=== PATIENT | female | born 1935 | race Caucasian/White ===

== ENCOUNTER → 2017-07-01 | Outpatient (CLI) | payer MEDICARE, OTHER ==
[~2017-07-01] MED LIST: 5-HY100C PO; ALAVERT; ALLO100T70 PO; AML5; AMLO-104 PO; AMLO-98 PO; AMLO-99 PO; AMO500 PO; ASCO-191 PO; ASP325 PO; ASPI-1471 PO; CALC-797 PO; CEFU250T11 PO; CHOL200022 PO; CLO75 PO; CYA100 PO; ESOM20CA31 PO; FISH OIL 1,2001 CAP PO; FISH1CAP15 PO; FISH1CAP23 PO; GLUC1TAB35 PO; GRAP25CA3 PO; HYDR-2946 PO; HYDR12.558 PO; INDO50CA92 PO; IPRA4AER IH; LACT1CAP50 PO; LACT1CAP6 PO; LECI400C PO; LISI-374 PO; LISINOPRIL; LOR5/325 PO; MELA1TAB23 PO; MELA1TAB27 PO; METR-1 PO; MOME17SP2; MU-V1TAB9 PO; MULT-977 PO; MULT1TAB64 PO; NIA100 PO; OMEP40CA79 PO; ONDA4TAB PO; ONDA8TAB98 PO; PANT40TA65 PO; PARO-46 PO; PYRI50 PO; S-AD400T7 PO; SUPER ENZYMES PO; TRYP500C2 PO; TUMERIC PO; TURM500C7 PO; UBID400C6 PO; VITA-197 PO; [UNRECOGNIZED DRUG - CODE] PO
--- NOTE | 2017-07-01 16:56 | RADIOLOGY IMAGING REPORT ---
FACILITY: [facility] [place] PATIENT NAME: Alexandra Paul : 1935 MR: [id number] V: [id number] EXAM DATE: ORDERING PHYSICIAN: KARLEY HUYNH TECHNOLOGIST: [facility] Patient: Alexandra Paul : 1935 Visit/Account:[id number] Date of Sevice: 07/01/2017 CAROTID HISTORY: prior history of left endarterectomy COMPARISON: 10/11/2007 FINDINGS: Grayscale, duplex and color Doppler interrogation of the extracranial carotid and vertebral arteries was performed bilateral. On the right, peak systolic velocities within the common and internal carotid arteries are 74 and 82 cm/sec respectively. Mild plaque formation is noted along the medial proximal internal carotid arter y wall. No hemodynamically significant stenosis is identified. Doppler waveforms are within normal limits.. Antegrade flow within the common, internal and external carotid arteries as well as vertebr al artery. ICA/CCA ratio 1.2. On the left, peak systolic velocities within the common and internal carotid arteries are 79 and 97 c m/sec respectively. No hemodynamically significant stenoses are identified. No significant plaque f ormation is identified. Endarterectomy appears patent. Doppler waveforms are within normal limits.. Antegrade flow within the common, internal and external carotid arteries as well as vertebral arter y. ICA/CCA ratio 1.3. IMPRESSION: Negative carotid ultrasound, no stenoses are identified. Velocity criteria are extrapolated from diameter data as defined by the Society of Radiologists [place] [facility] Consensus Conference Radiology 2003; 229;340-346 Report Dictated By: Harsh Reilly at 07/01/2017 4:49 PM Report E-Signed By: Harsh Reilly at 07/01/2017 4:52 PM WSN:[id number]
== END ==
LOC: US 00:15
PROVIDERS: ATTEND Internal Medicine
DX: Z98.890 Other specified postprocedural states (principal)
CPT/HCPCS: 93880

== ENCOUNTER → 2017-09-01 | Outpatient (CLI) | payer MEDICARE, OTHER | LOC: LAB 09:16 | PROVIDERS: ATTEND Internal Medicine | DX: E78.2 Mixed hyperlipidemia (principal); I10 Essential (primary) hypertension; M10.9 Gout, unspecified | CPT/HCPCS: 36415; 82040; 82247; 82310; 82374; 82435; 82465; 82565; 82947; 83718; 84075; 84132; 84155; 84295; 84450; 84460; 84478; 84520; 84550 ==

== ENCOUNTER → 2017-11-01 | Outpatient (CLI) | payer MEDICARE, OTHER ==
[~2017-11-01] MED LIST changes: +MELA10CA PO
--- NOTE | 2017-11-01 09:46 | RADIOLOGY IMAGING REPORT ---
FACILITY: [facility] [place] PATIENT NAME: Alexandra Paul : 1935 MR: [id number] V: [id number] EXAM DATE: ORDERING PHYSICIAN: KARLEY HUYNH TECHNOLOGIST: Location: [facility] Patient: Alexandra Paul : 1935 Visit/Account:[id number] Date of Sevice: 11/01/2017 LIVER HISTORY: Elevated LFTs COMPARISON: CT abdomen pelvis from right 2016 FINDINGS: Gallbladder: Unremarkable; no stones or sludge. Liver: There is increased echogenicity throughout the liver which can be seen with fatty infiltration other infiltrative process. The liver is normal in size. Common duct: Normal, 3.3 mm diameter. Pancreas: Partially obscured by bowel, visualized aspects unremarkable. Right kidney: There is a slight lobular contour to the right kidney. No evidence of hydronephrosis. Right kidney measures 8.1 cm in length Upper abdominal aorta and IVC: Patent. Ascites: None visualized. IMPRESSION: Increased echogenicity throughout the liver which can be seen with fatty infiltration or other infilt rative process Report Dictated By: Radha De Paz MD at 11/01/2017 9:40 AM Report E-Signed By: Radha De Paz MD at 11/01/2017 9:42 AM WSN:[email or web address]
== END ==
LOC: US 01:13
PROVIDERS: ATTEND Internal Medicine
DX: K76.0 Fatty (change of) liver, not elsewhere classified (principal)
CPT/HCPCS: 76705

== ENCOUNTER → 2017-12-07 | Outpatient (CLI) | payer MEDICARE, OTHER ==
[~2017-12-07] VITALS: Ht 162.6 cm; Wt 75.3 kg
[~2017-12-07] MED LIST changes: +INDO-23 PO; -INDO50CA92 PO
--- NOTE | 2017-12-08 12:53 | Medical Nutrition Therapy ---
Nutrition Anthropometrics Height (Inches): 64 Weight (Pounds): 166 Obed Nutrition Score: Obed Nutrition Risk Score: Dietary Referral Nutrition Risk Factors: Nutrition Risk Comment: Nutrition/Food History Breakfast: muffin, juice or welsh toast, syrup, erazo, juice Lunch: mach & cheese or sandwihc ,fruit, pudding, estephania milk Dinner: sandwich or cheese and cracker Snacks: van wafer or crackers with jelly and milk Nutritional Education Nutrition Education Topic: Weight Loss Diet (with fatty liver dx) Learning Readiness: Eager, Interested Teaching Methods: Discussion, Handout, Demonstration Response to Teaching: Verbalize understanding, Reinforcement needed Teaching Recipient: Patient Nutrition Counseling: Late entry for 12/07: Pt with dx of fatty liver and obestiy. Review low trig diet and encouraged wt loss. Pt provided 3 day intake. Reviewed with pt food items that can contribute to fatty liver. Encouraged pt to limit simple CHO, alcohol and to exercise and lose wt. Pt is exerciseing ~ 4 hr/week at classes in [facility]. Reviewed portion sizes and plate method. Provided meal plan of 2 CHO/meal, 20-3 ox meat, 1 fat, and unlimited veg. Pt will f/u for weigh-in only Dec 21. Nutrition Monitoring & Eval RD Patient Assessment Time: [address] Assessment Type: RD Education Nutritional Comment: Provided 40 minutes MNT for fatty liver and obesity. Copies To Copies to: KARLEY HUYNH MD, BETH Dec 08, 2017 12:53
== END ==
LOC: DIET 13:40
PROVIDERS: ATTEND Internal Medicine
DX: K76.0 Fatty (change of) liver, not elsewhere classified (principal); E78.2 Mixed hyperlipidemia; I10 Essential (primary) hypertension; R79.89 Other specified abnormal findings of blood chemistry
CPT/HCPCS: 97802

== ENCOUNTER → 2018-03-09 | Outpatient (CLI) | payer MEDICARE, OTHER ==
[~2018-03-09] MED LIST changes: +AMLO-113 PO; -AMLO-99 PO; +CHOL200018 PO; -CHOL200022 PO
== END ==
LOC: LAB 08:59
PROVIDERS: ATTEND Internal Medicine
DX: E78.2 Mixed hyperlipidemia (principal); R79.89 Other specified abnormal findings of blood chemistry; M10.9 Gout, unspecified; I10 Essential (primary) hypertension
CPT/HCPCS: 36415; 82040; 82247; 82310; 82374; 82435; 82465; 82565; 82947; 83718; 84075; 84132; 84155; 84295; 84450; 84460; 84478; 84520; 84550

== ENCOUNTER → 2018-04-05 | Outpatient (CLI) | payer MEDICARE, OTHER ==
--- NOTE | 2018-04-06 10:17 | RADIOLOGY IMAGING REPORT ---
FACILITY: [facility] PATIENT NAME: THOMAS COCHRAN : [id number] MR: [id number] V: [id number] EXAM DATE: [id number] ORDERING PHYSICIAN: KARLEY HUYNH TECHNOLOGIST: Yessy Melgar PROCEDURE:BILATERAL DIGITAL SCREENING MAMMOGRAM WITH CAD ASSISTED INTERPRETATION & 3D TOMOSYNTHESIS COMPARISON:04/29/16, 01/17/13 INDICATIONS:screening FINDINGS: Breast parenchyma is heterogeneously dense. There are secretory & vascular calcifications in the breast. No mammographic findings concerning for malignancy. No significant interval change. DIAGNOSTIC CATEGORY 2--BENIGN FINDING. RECOMMENDATIONS: ROUTINE MAMMOGRAM AND CLINICAL EVALUATION IN 1 YEAR. IMPRESSION: BIRADS 2: Benign finding. Dictated by: Ariel Rothman on 04/06/2018 at 9:22 Transcribed by: SOHEILA on 04/06/2018 at 10:00 Approved by: Ariel Rothman on 04/06/2018 at 10:16 [facility]
== END ==
LOC: MAMO 00:30
PROVIDERS: ATTEND Internal Medicine
DX: Z12.31 Encounter for screening mammogram for malignant neoplasm of breast (principal)
CPT/HCPCS: 77063; 77067

== ENCOUNTER → 2018-09-04 | Outpatient (CLI) | payer MEDICARE, OTHER ==
[~2018-09-04] MED LIST changes: -AMLO-113 PO; +AMLO-127 PO; +DICL100G39 TOP
[2018-09-04 11:12] LABS: PLATELET COUNT, AUTOMATED 263 K/uL (150-450)
== END ==
LOC: LAB 10:48
PROVIDERS: ATTEND Emergency Medicine
DX: M10.9 Gout, unspecified (principal); E78.2 Mixed hyperlipidemia; N18.3 Chronic kidney disease, stage 3 (moderate); I12.9 Hypertensive chronic kidney disease with stage 1 through stage 4 chronic kidney disease, or unspecified chronic kidney disease
CPT/HCPCS: 36415; 81001; 82040; 82247; 82310; 82374; 82435; 82565; 82607; 82947; 83036; 84075; 84132; 84155; 84295; 84443; 84450; 84460; 84520; 85025

== ENCOUNTER → 2018-10-05 | Outpatient (CLI) | payer MEDICARE, OTHER | LOC: LAB 08:40 | PROVIDERS: ATTEND Emergency Medicine | DX: E05.90 Thyrotoxicosis, unspecified without thyrotoxic crisis or storm (principal); R79.89 Other specified abnormal findings of blood chemistry | CPT/HCPCS: 36415; 84439; 84443; 84445; 84481 ==